=== PATIENT | female | born 1980 | race African-American/Black ===

== ENCOUNTER 2024-04-26 20:32 | Emergency (ER) | payer OTHER ==
[~2024-04-26] VITALS: Ht 175.3 cm; Wt 98.5 kg
[2024-04-26 20:37] VITALS: BP 132/93; RESP 16; O2SAT 98
[2024-04-26 21:02] VITALS: PULSE 111
== END 2024-04-27 | disposition home or self-care (01) ==
LOC: ER 20:32 → EDBD 20:32 → ER 04-27
DX: F41.9 Anxiety disorder, unspecified (principal); F12.10 Cannabis abuse, uncomplicated
CPT/HCPCS: 93005